=== PATIENT | female | born 1965 | race Caucasian/White ===

== ENCOUNTER 2020-04-06 07:00 | Outpatient (CLI) | payer OTHER | END 2020-04-06 23:59 | disposition home or self-care (01) | LOC: COV 07:00 | PROVIDERS: ATTEND Surgery | DX: Z01.812 Encounter for preprocedural laboratory examination (principal); K64.8 Other hemorrhoids; K51.40 Inflammatory polyps of colon without complications; Z20.822 Contact with and (suspected) exposure to COVID-19 ==

== ENCOUNTER 2020-04-10 06:30 | Day surgery (SDC) | payer OTHER ==
[~2020-04-10 06:30] MED LIST: LACTATED RINGERS 1,000 ML IV ONE
[2020-04-10] MEDS ORDERED: ceFAZolin 2 GM/50 ML 2 GM/50 ML BAG IV ONE (06:33)
[2020-04-10 06:52] LABS: HCG UR QUAL NEGATIVE
[2020-04-10] MEDS ORDERED: PROPOFOL 500 MG/50 ML 500 MG/50 ML VIAL ONE (07:23)
[2020-04-10] MEDS ORDERED: LIDOCAINE-MPF 2% 5 ML VIAL ONE (07:23)
[2020-04-10] MEDS ORDERED: KETAMINE 500 MG/10 ML VIAL ONE (07:24)
[2020-04-10] MEDS ORDERED: MIDAZOLAM 2 MG/2 ML VIAL ONE (07:24)
--- NOTE | 2020-04-10 07:25 | ANESTHESIA ---
Pre-Anesthesia VS, & Labs - Diagnosis EUP, hemorrhoid banding - Procedure EUA hemorrhoid banding Height: 5 ft 3 in Weight (kg): 68 kg Body Mass Index: 26.5 BMI Classification: Overweight - NPO >8 hours - Is Patient ?: No Home Medications and Allergies Home Medications: Ambulatory Orders Biest 80/20 Dhea 1.5/10mg 1 supp VG DAILY 03/31/20 Cholecalciferol [Vitamin D3] 50 mcg PO DAILY 03/31/20 Multivitamin 1 each PO DAILY 03/31/20 Naltrexone Hcl 4.5 mg PO DAILY 03/31/20 Progesterone,Micronized [Prometrium] 40 mg PO DAILY 03/31/20 Scopolamine Patch [Transderm-Scop] 1 each TD ONCE 03/31/20 Testosterone [Androgel] 1 applic TOP DAILY 03/31/20 Biest 80/20 Dhea 1.5/10mg 1 supp VG DAILY 03/31/20 Cholecalciferol [Vitamin D3] 50 mcg PO DAILY 03/31/20 Multivitamin 1 each PO DAILY 03/31/20 Naltrexone Hcl 4.5 mg PO DAILY 03/31/20 Progesterone,Micronized [Prometrium] 40 mg PO DAILY 03/31/20 Scopolamine Patch [Transderm-Scop] 1 each TD ONCE 03/31/20 Testosterone [Androgel] 1 applic TOP DAILY 03/31/20 Allergies/Adverse Reactions: Allergies Allergy/AdvReac Type Severity Reaction Status Date / Time Sulfa (Sulfonamide Allergy Rash Verified 04/10/20 07:01 Antibiotics) wheat AdvReac bloating Verified 04/10/20 07:01 Anes History & Medical History - Anesthetic History Anesthesia Complications: reports: No previous complications - Medical History Cardiovascular: reports: High cholesterol, Murmur Pulmonary: reports: Asthma Gastrointestinal: reports: Hemorrhoids Urinary: reports: None Musculoskeletal: reports: Osteoarthritis Endocrine/Autoimmune: reports: None Skin: reports: None - Surgical History General: Appendectomy Gynecologic: section Exam General: Alert Dental: WNL Mouth Opening: Greater than 4 Fingerbreadths Neck Mobility: Normal Mallampati classification: I Thyromental Distance: greater than 6 cm Respiratory: Lungs clear Cardiovascular: Regular rate Plan Anesthesia Type: MAC Consent for Procedure(s) Verified and Reviewed: Yes Code Status: Attempt Resuscitation ASA classification: 2-Mild systemic disease Is this case an emergency?: No
[2020-04-10] MEDS ORDERED: ONDANSETRON 4 MG/2 ML VIAL ONE (08:10)
[2020-04-10] MEDS ORDERED: BUPIVACAINE 0.5% PF 30 ML VIAL INFIL ONE (08:11)
[2020-04-10] MEDS ORDERED: LIDOCAINE 2%-EPI 1:100000 20 ML MDV SUBQ ONE (08:11)
[2020-04-10] MEDS ORDERED: LIDOCAINE 2%-EPI 1:100000 20 ML MDV ONE (08:15)
[2020-04-10] MEDS ORDERED: BUPIVACAINE 0.5% PF 30 ML VIAL ONE (08:15)
[2020-04-10] MEDS ORDERED: LACTATED RINGERS 1,000 ML IV ONE (08:22)
[2020-04-10] MEDS ORDERED: MORPHINE 2 MG/ML CARPUJECT IVP PRN (08:23)
[2020-04-10] MEDS ORDERED: ATROPINE ABBOJECT 1 MG/10 ML SYRINGE IVP PRN (08:23)
[2020-04-10] MEDS ORDERED: KETOROLAC 15 MG/ML VIAL IVP ONE (08:23)
[2020-04-10] MEDS ORDERED: ePHEDrine 50 MG/ML VIAL IVP PRN (08:23)
[2020-04-10] MEDS ORDERED: fentaNYL 100 MCG/2 ML VIAL IVP PRN (08:23)
[2020-04-10] MEDS ORDERED: HYDROmorphone 0.5 MG/0.5 ML SYRINGE IVP PRN (08:23)
[2020-04-10] MEDS ORDERED: METOCLOPRAMIDE 10 MG/2 ML VIAL IVP PRN (08:23)
[2020-04-10] MEDS ORDERED: NALOXONE 0.4 MG/ML VIAL IVP PRN (08:23)
[2020-04-10] MEDS ORDERED: ONDANSETRON 4 MG/2 ML VIAL IVP PRN ×2 (08:23→08:32)
[2020-04-10] MEDS ORDERED: fentaNYL 100 MCG/2 ML VIAL ONE (08:28)
--- NOTE | 2020-04-10 08:28 | OPERATIVE REPORT ---
Operative Report - General Procedure Date: 04/10/20 Planned Procedure: Examination under anesthesia with hemorrhoid banding, external hemorrhoidectomy, and polypectomy Pre-Op Diagnosis: Prolapsing external hemorrhoid and internal hemorrhoids with associated ski Procedure Performed: Examination under anesthesia with hemorrhoid banding x3, open external hemorrhoidectomy, and anal polypectomy Post Op Diagnosis: Same - Procedure Note Primary Surgeon: Phil Anesthesia Provider: AMINA Taylor Pathology: 1. External Hemorrhoid 2. Anal polyp Estimated Blood Loss (mL): 5 Indications: Prolapsing and painful external hemorrhoid Findings: 1. Prolapsed hemorrhoid at 5 o'clock radian 2. Anal polyp at the 7 o'clock radian 3. Full fabián of enlarge and bulging internal hemorrhoids Complications: None apparent - Other Other Information/Narrative: After obtaining informed consent, the patient is brought to the endoscopy suite and placed in the left lateral decubitus position on the examination table. Following successful induction of sedation with monitored anesthesia care, the perianal region was prepped and draped in the standard surgical fashion. A timeout was held per scope protocol all elements of the surgical safety checklist were followed before, during, and after the procedure. Following infiltration with local anesthetic around the entire anal canal and anoderm, the anoscope with obturator was lubricated and placed in the patient's anal canal. The obturator was removed and the slots aligned to allow access to 3 column internal hemorrhoids. The device, the Cook multi band ligator-short shot-was placed into the anal canal. The tip of the device was placed in contact with the tissue to be treated beginning at the 4 o'clock position. The suction port was closed. A single band was deployed and the suction port released.The band was noted to be in place.We next addressed the hemorrhoid complex at 7:00.The tip of the device was placed in contact with the tissue, the suction port covered, a band deployed, the suction port released. Again we were able to see that the band was in place.We next addressed the hemorrhoid at the 11 o'clock position. This was the smallest of the 3. The tip of the device was placed in contact with the tissue, the suction port covered, a band deployed, the suction port released. Again we were able to see that the band was in place.Examination of the anal count canal revealed all [address] We continued with external hemorrhoidectomy. With the retractor in place, I was able to easily visualize and access the prolapsing external hemorrhoid at the 5:00 radian. A 3-0 chromic suture was placed at the apex of this hemorrhoid. A 15 blade scalpel was used to open the anoderm over the hemorrhoid and the h emorrhoid was then dissected off of the underlying muscle with Metzenbaum scissors. It was liberated and passed from the table. The remaining defect was then closed with a running locking 3-0 chromic suture. The retractor was then turned slightly to allow good access to the anal polyp. This was addressed with an elliptical incision around its base and it was removed in total. The remaining defect was closed with 3-0 chromic suture.The anoscope was removed and the procedure concluded. The anal canal was dressed with Gelfoam and gauze. All sponge, needle, and instrument counts were correct at the conclusion of the case.The patient tolerated the procedure well. She was allowed awaken from sedation and taken to the postanesthesia care unit in good condition.
[2020-04-10] MEDS ORDERED: KETOROLAC 30 MG/ML VIAL ONE (08:35)
[2020-04-10] MEDS ORDERED: ACETAMINOPHEN 1,000 MG/100 ML 100 ML IV ONE (08:35)
[2020-04-10] MEDS ORDERED: oxyCODONE 5 MG TABLET PO PRN (08:54)
[2020-04-10] MEDS ORDERED: LACTATED RINGERS 1,000 ML IV SCH (09:00)
[2020-04-10 09:37] VITALS: BP 115/64
--- NOTE | 2020-04-10 12:23 | ANESTHESIA POST OP EVALUATION ---
Anesthesia Post Eval - Post Anesthesia Eval Vitals: Last Vital Signs Temp 36.5 C 04/10/20 09:35 Pulse 74 04/10/20 09:35 Resp 16 04/10/20 09:35 BP 115/64 04/10/20 09:35 Pulse Ox 96 04/10/20 09:35 CV Function Including HR & BP: positive: Stable Pain Control: positive: Satisfactory Nausea & Vomiting: positive: Negative Mental Status: positive: Patient Participates Respiratory Status: Airway Patent Hydration Status: Satisfactory Anesthesia Complications: positive: None
== END 2020-04-10 06:31 | disposition home or self-care (01) ==
LOC: SDS 06:30
PROVIDERS: ATTEND Surgery
PROC: 06LY4CC Occlusion of Hemorrhoidal Plexus with Extraluminal Device, Percutaneous Endoscopic Approach (ICD-10-PCS; principal; 2020-04-10 07:30)
DX: K64.8 Other hemorrhoids (principal); K62.0 Anal polyp; F40.240 Claustrophobia; E66.3 Overweight; Z68.26 Body mass index [BMI] 26.0-26.9, adult
CPT/HCPCS: 36415; 46221; 46922; 46999; 81025; A9270; J0131; J0690; J7120